=== PATIENT | female | born 1990 | race African-American/Black ===

== ENCOUNTER → 2018-12-05 | Outpatient (CLI) | payer OTHER ==
--- NOTE | 2018-12-05 16:31 | Diagnostic Imaging Report ---
EXAMINATION: Right upper quadrant ultrasound CLINICAL INDICATION: Dyspepsia COMPARISON: None DISCUSSION: Transverse and longitudinal images of the right upper quadrant were obtained. The liver is increased in size measuring 18.3centimeters in length in the right midclavicular line and shows normal echogenicity. No focal masses are seen in the liver. There is no intrahepatic biliary dilatation. The common bile duct is normal in caliber and measures 0.2 cm. The main portal vein is normal in caliber and measures 0.8 cm with normal hepatopetal flow. The gallbladder is normal in appearance without stones, wall thickening or pericholecystic fluid. The sonographic Fraire's sign is negative. The visualized portions of the pancreatic body are unremarkable. The right kidney measures 9.4 centimeters in length. There is normal renal cortical echogenicity and no hydronephrosis, mass or shadowing calculi. The visualized portions of the great vessels are normal. No free fluid is seen. IMPRESSION: Hepatomegaly, otherwise unremarkable gallbladder ultrasound. Signed by: Dr. Dandy Middleton M.D. on 12/05/2018 4:28 PM
== END ==
LOC: US 15:28
PROVIDERS: ATTEND Emergency Medicine
DX: R10.13 Epigastric pain (principal)
CPT/HCPCS: 76705

== ENCOUNTER → 2019-03-04 | Outpatient (CLI) | payer OTHER ==
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
== END ==
LOC: CT 15:45
PROVIDERS: ATTEND Emergency Medicine
DX: S09.90XA Unspecified injury of head, initial encounter (principal); M54.2 Cervicalgia; V89.2XXA Person injured in unspecified motor-vehicle accident, traffic, initial encounter
CPT/HCPCS: 70450; 72125

== ENCOUNTER → 2019-09-06 | Outpatient (CLI) | payer OTHER ==
--- NOTE | 2019-09-06 15:47 | Diagnostic Imaging Report ---
EXAMINATION: CHEST 2 VIEWS INDICATION: Bronchitis COMPARISON: None FINDINGS: LINES/TUBES:None LUNGS:The lungs are well-inflated. No focal consolidation or pulmonary edema. PLEURA:No pleural effusion or pneumothorax. MEDIASTINUM:The cardiomediastinal silhouette appears normal in size and shape. BONES/SOFT TISSUES:No acute osseous injury. S shaped curvature of the thoracic spine. 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 ABDOMEN:No free air under the diaphragm. IMPRESSION: No focal pneumonia or pulmonary edema. Signed by: Maya Rojas MD on 09/06/2019 3:43 PM
== END ==
LOC: RAD 15:03
PROVIDERS: ATTEND Emergency Medicine
DX: J20.9 Acute bronchitis, unspecified (principal)
CPT/HCPCS: 71046